=== PATIENT | male | born 1990 | race Caucasian/White ===

== ENCOUNTER 2018-06-18 22:07 | Emergency (ER) | payer OTHER ==
--- NOTE | 2018-06-18 22:30 | ER Report ---
History and Physical Time Seen By MD: 22:29 Hx. of Stated Complaint: head aches for 2 months, tonight they have gotten worse "like a brain freeze" HPI/ROS CHIEF COMPLAINT: Headaches HISTORY OF PRESENT ILLNESS: This is a 27-year-old male. He has been having headaches. These been going on for several months. Had seen a doctor who diagnosed with stress related and tension related headaches. Pattern has changed recently. Getting more headaches in the right judaism area. Headaches are usually short duration, sharp shooting pains. He will have at least one and sometimes many headaches each day. He is not really use much in the way of pain medicines because they're so short in duration and don't seem to help. He has tried some ibuprofen in the past. Denies any fevers or chills. No vision changes. He has had ringing in his ears, but he has had this several times in the past as well. Denies any jaw pain. He has a low bit of pain in the left sternocleidomastoid muscle but no other neck pain. No shortness of breath or chest pain. He has no numbness or weakness in the arms or legs and no neurologic symptoms such as d izziness or balance problems. Allergies: Coded Allergies: No Known Drug Allergies (Unverified , 06/18/18) Home Meds Active Scripts Prednisone (PREDNISONE) 20 Mg Tablet, 40 MG PO QDAY, #10 TAB 0 Refills Prov:TEN PRYOR MD 06/19/18 Reviewed Nurses Notes: Yes Hx Substance Use Disorder: No Constitutional Vital Sign - Last 24 Hours 06/18/18 22:11 Temp 98.3 Pulse 65 Resp 17 B/P (MAP) 165/96 Pulse Ox 93 O2 Delivery Room Air Physical Exam General Appearance: The patient is alert. No acute distress. Eyes: Pupils are equal, round. Reactive to light. No pallor, injection or icterus. Extraocular movements are intact. No nystagmus. ENT: Mucous membranes are moist. Normal oral mucosa. Posterior oropharynx is normal. Normal tympanic membranes and canals. No jaw pain. Neck: Supple and non tender. No lymphadenopathy. Respiratory: Lungs are clear to auscultation. Cardiovascular: Regular rate and rhythm. No murmurs, gallops or rubs. Normal capillary refill. Gastrointestinal: Abdomen is soft and non tender. Nondistended. Normal active bowel sounds. Neurological: Alert and oriented x3. No focal neurologic deficits. Cranial nerves without any deficits and I exam as noted above. Midline tongue, symmetric palate elevation. No facial numbness or weakness. Normal strength and sensation throughout the arms and legs, normal reflexes. Skin: Warm and dry. Musculoskeletal: Extremities are nontender. No tenderness in palpation of the cervical, thoracic and lumbar spine. DIFFERENTIAL DIAGNOSIS: After history and physical exam, differential diagnosis was considered for headache including but not limited to subarachnoid hemorrhage, migraine headache, tension headache and infectious causes are unlikely such as meningitis, pharyngitis and sinusitis. Medical Decision Making Data Points Result Diagram: 06/18/186 06/18/186 Laboratory Hematology Test 06/18/18 22:56 Red Blood Count 5.25 M/uL (4.00-5.60) Mean Corpuscular Volume 88.5 fL (80.0-96.0) Mean Corpuscular Hemoglobin 30.1 pg (26.0-33.0) Mean Corpuscular Hemoglobin Concent 34.0 g/dL (32.0-36.0) Red Cell Distribution Width 13.9 % (11.5-14.5) Mean Platelet Volume 8.6 fL (7.2-11.1) Neutrophils (%) (Auto) 56.6 % (39.4-72.5) Lymphocytes (%) (Auto) 32.8 % (17.6-49.6) Monocytes (%) (Auto) 7.9 % (4.1-12.4) Eosinophils (%) (Auto) 1.6 % (0.4-6.7) Basophils (%) (Auto) 1.1 % (0.3-1.4) Nucleated RBC Relative Count (auto) 0.1 /100WBC Neutrophils # (Auto) 3.6 K/uL (2.0-7.4) Lymphocytes # (Auto) 2.1 K/uL (1.3-3.6) Monocytes # (Auto) 0.5 K/uL (0.3-1.0) Eosinophils # (Auto) 0.1 K/uL (0.0-0.5) Basophils # (Auto) 0.1 K/uL (0.0-0.1) Nucleated RBC Absolute Count (auto) 0.00 K/uL Erythrocyte Sedimentation Rate 2 mm/HOUR (0-15) Sodium Level 140 mmol/L (137-145) Potassium Level 4.2 mmol/L (3.5-5.0) Chloride Level 108 mmol/L (98-107) Carbon Dioxide Level 26 mmol/L (22-30) Blood Urea Nitrogen 18 mg/dl (9-21) Creatinine 0.80 mg/dl (0.66-1.25) Glomerular Filtration Rate Calc > 60.0 Random Glucose 104 mg/dl (75-110) Calcium Level 9.2 mg/dl (8.4-10.2) Total Bilirubin 0.4 mg/dl (0.2-1.3) Aspartate Amino Transf (AST/SGOT) 23 U/L (0-35) Alanine Aminotransferase (ALT/SGPT) 38 U/L (0-56) Alkaline Phosphatase 73 U/L (0-126) C-Reactive Protein < 0.5 mg/dl (<1.0) Total Protein 7.5 g/dl (6.3-8.2) Albumin 4.5 g/dl (3.5-5.0) Chemistry Test 06/18/18 22:56 White Blood Count 6.3 k/uL (4.5-11.0) Red Blood Count 5.25 M/uL (4.00-5.60) Hemoglobin 15.8 g/dL (14.0-18.0) Hematocrit 46.5 % (42.0-52.0) Mean Corpuscular Volume 88.5 fL (80.0-96.0) Mean Corpuscular Hemoglobin 30.1 pg (26.0-33.0) Mean Corpuscular Hemoglobin Concent 34.0 g/dL (32.0-36.0) Red Cell Distribution Width 13.9 % (11.5-14.5) Platelet Count 234 K/uL (150-450) Mean Platelet Volume 8.6 fL (7.2-11.1) Neutrophils (%) (Auto) 56.6 % (39.4-72.5) Lymphocytes (%) (Auto) 32.8 % (17.6-49.6) Monocytes (%) (Auto) 7.9 % (4.1-12.4) Eosinophils (%) (Auto) 1.6 % (0.4-6.7) Basophils (%) (Auto) 1.1 % (0.3-1.4) Nucleated RBC Relative Count (auto) 0.1 /100WBC Neutrophils # (Auto) 3.6 K/uL (2.0-7.4) Lymphocytes # (Auto) 2.1 K/uL (1.3-3.6) Monocytes # (Auto) 0.5 K/uL (0.3-1.0) Eosinophils # (Auto) 0.1 K/uL (0.0-0.5) Basophils # (Auto) 0.1 K/uL (0.0-0.1) Nucleated RBC Absolute Count (auto) 0.00 K/uL Erythrocyte Sedimentation Rate 2 mm/HOUR (0-15) Glomerular Filtration Rate Calc > 60.0 Calcium Level 9.2 mg/dl (8.4-10.2) Total Bilirubin 0.4 mg/dl (0.2-1.3) Aspartate Amino Transf (AST/SGOT) 23 U/L (0-35) Alanine Aminotransferase (ALT/SGPT) 38 U/L (0-56) Alkaline Phosphatase 73 U/L (0-126) C-Reactive Protein < 0.5 mg/dl (<1.0) Total Protein 7.5 g/dl (6.3-8.2) Albumin 4.5 g/dl (3.5-5.0) EKG/Imaging Imaging CT Head without contrast and CT sinuses Indication: Headaches. Comparison: None available Technique: CT head: Axial CT images were obtained through the brain from the skull base to the vertex without administration of IV contrast. Technique: CT sinuses: Axial CT images are obtained through the sinuses. Reformatted coronal and sagittal images were reviewed. One of the following dose optimization techniques was utilized in the performance of this exam: Automated exposure control; adjustment of the mA and/or kV according to the patient's size; or use of an iterative reconstruction technique. Specific details can be referenced in the facility's radiology CT exam operational policy. FINDINGS: CT head: No evidence of mass, mass effect, or midline shift. No acute intracranial hemorrhage or acute territorial infarction. No calvarial fracture. CT sinuses: Minimal mucosal thickening in the maxillary sinuses. Paranasal sinuses and mastoid air spaces are otherwise clear. No acute fracture or dislocation of the facial bones. Globes and orbits are grossly normal. Soft tissues are unremarkable. The visualized upper cervical spine is unremarkable. IMPRESSION: 1. No acute intracranial abnormality. 2. Minimal mucosal thickening in the maxillary sinuses. Report Dictated By: Dioni Wright MD at 06/18/2018 11:46 PM ED Course/Re-evaluation ED Course Labs unremarkable including CRP and sedimentation rate. CT scan of the head and sinuses words done which was negative as well. Reviewed this with the patient. W e will start him on a trial of prednisone 5 day burst. Recommended follow-up with neurology for further evaluation of headache. Decision to Disposition Date: Jun 19, 2018 Decision to Disposition Time: 00:35 Depart Departure Latest Vital Signs Vital Signs Date Time Temp Pulse Resp B/P (MAP) Pulse Ox O2 Delivery O2 Flow Rate FiO2 06/18/18 22:11 98.3 65 17 165/96 93 Room Air Impression: Primary Impression: Headache Condition: Improved Disposition: HOME OR SELF-CARE New Scripts Prednisone (PREDNISONE) 20 Mg Tablet 40 MG PO QDAY, #10 TAB 0 Refills Prov: TEN PRYOR MD 06/19/18 Patient Instructions: Acute Headache (ED) Additional Instructions: Arrange follow-up with a neurologist for further evaluation for your headaches. We did not find a cause for them tonight on workup here in the ER. Trial of Prednisone 40mg (2 20mg tablets) once a day for 5 days. Problem Qualifiers Primary Impression: Headache Headache type: unspecified Headache chronicity pattern: acute headache Intractability: not intractable Qualified Codes: R51 - Headache TEN PRYOR MD Jun 18, 2018 22:30
[2018-06-18 23:00] VITALS: BP 127/82
[2018-06-18 23:05] LABS: PLATELET COUNT, AUTOMATED 234 K/uL (150-450)
--- NOTE | 2018-06-18 23:55 | RADIOLOGY IMAGING REPORT ---
FACILITY: [facility] PATIENT NAME: Lanre Aviles : 1990 MR: [id number] V: [id number] EXAM DATE: ORDERING PHYSICIAN: TEN PRYOR TECHNOLOGIST: Location: [facility] [place] Patient: Lanre Aviles : 1990 Visit/Account:[id number] Date of Sevice: 06/18/2018 CT Head without contrast and CT sinuses Indication: Headaches. Comparison: None available Technique: CT head: Axial CT images were obtained through the brain from the skull base to the verte x without administration of IV contrast. Technique: CT sinuses: Axial CT images are obtained through the sinuses. Reformatted coronal and sagi ttal images were reviewed. One of the following dose optimization techniques was utilized in the performance of this exam: Autom ated exposure control; adjustment of the mA and/or kV according to the patient's size; or use of an i terative reconstruction technique. Specific details can be referenced in the facility's radiology C T exam operational policy. FINDINGS: CT head: No evidence of mass, mass effect, or midline shift. No acute intracranial hemorrhage or acute territorial infarction. No calvarial fracture. CT sinuses: Minimal mucosal thickening in the maxillary sinuses. Paranasal sinuses and mastoid air spaces are ot herwise clear. No acute fracture or dislocation of the facial bones. Globes and orbits are grossly normal. Soft tissues are unremarkable. The visualized upper cervical spine is unremarkable. IMPRESSION: 1. No acute intracranial abnormality. 2. Minimal mucosal thickening in the maxillary sinuses. Report Dictated By: Dioni Wright MD at 06/18/2018 11:46 PM Report E-Signed By: Dioni Wright MD at 06/18/2018 11:52 PM WSN:[id number]
--- NOTE | 2018-06-18 23:56 | RADIOLOGY IMAGING REPORT ---
FACILITY: [facility] [place] PATIENT NAME: Lanre Aviles : 1990 MR: [id number] V: [id number] EXAM DATE: ORDERING PHYSICIAN: TEN PRYOR TECHNOLOGIST: Location: [facility] Patient: Lanre Aviles : 1990 Visit/Account:[id number] Date of Sevice: 06/18/2018 CT Head without contrast and CT sinuses Indication: Headaches. Comparison: None available Technique: CT head: Axial CT images were obtained through the brain from the skull base to the verte x without administration of IV contrast. Technique: CT sinuses: Axial CT images are obtained through the sinuses. Reformatted coronal and sagi ttal images were reviewed. One of the following dose optimization techniques was utilized in the performance of this exam: Autom ated exposure control; adjustment of the mA and/or kV according to the patient's size; or use of an i terative reconstruction technique. Specific details can be referenced in the facility's radiology C T exam operational policy. FINDINGS: CT head: No evidence of mass, mass effect, or midline shift. No acute intracranial hemorrhage or acute territorial infarction. No calvarial fracture. CT sinuses: Minimal mucosal thickening in the maxillary sinuses. Paranasal sinuses and mastoid air spaces are ot herwise clear. No acute fracture or dislocation of the facial bones. Globes and orbits are grossly normal. Soft tissues are unremarkable. The visualized upper cervical spine is unremarkable. IMPRESSION: 1. No acute intracranial abnormality. 2. Minimal mucosal thickening in the maxillary sinuses. Report Dictated By: Dioni Wright MD at 06/18/2018 11:46 PM Report E-Signed By: Dioni Wright MD at 06/18/2018 11:52 PM WSN:[id number]
[2018-06-19] MEDS ORDERED: PRED20TA6 PO (00:36)
== END 2018-06-19 00:45 | disposition home or self-care (01) ==
LOC: ER 22:19
DX: R51 Headache (principal)
CPT/HCPCS: 36415; 70450; 70486; 82040; 82247; 82310; 82374; 82435; 82565; 82947; 84075; 84132; 84155; 84295; 84450; 84460; 84520; 85025; 85651; 86140; 99284